=== PATIENT | male | born 1955 | race Caucasian/White ===

== ENCOUNTER → 2021-08-11 | Outpatient (CLI) | payer MEDICARE, SELFPAY ==
--- NOTE | 2021-08-11 06:51 | ECHOD_ITS ---
Reason For Study: SOB, Hx of CAD with Stent Procedure This was a 2D Doppler, Color Flow transthoracic echocardiogram. The study was technically difficult. Exam performed in department. Left Ventricle Normal LV size. Left ventricular systolic function is normal. The estimated ejection fraction is 60 %. No evidence for diastolic dysfunction. No regional wall motion abnormalities noted. Right Ventricle Normal RV size. Normal systolic function. Atria The left atrium is mildly enlarged. Normal right atrium. No doppler evidence for ASD. Mitral Valve There is mild mitral annular calcification. Extension of the mitral annular calcification onto the base of the posterior mitral valve leaflet. Trivial mitral valve insufficiency. Tricuspid Valve Normal tricuspid valve. Trivial tricuspid valve insufficiency. Right ventricular systolic pressure estimated to be 24 mmHg. Aortic Valve Trisinus/trileaflet aortic valve. Mild diffuse aortic valve thickening. Mild focal aortic valve calcification. Pulmonic Valve The pulmonic valve is not well visualized. Mild (1+) pulmonic valve insufficiency. Great Vessels Normal sized aortic root. Pericardium/Pleural No pericardial effusion. MMode/2D Measurements & Calculations LVIDd: 4.3 cm IVSd: 0.96 cm Ao root diam: 3.1 cm LVIDs: 2.6 cm LVPWd: 0.87 cm RVDd: 3.1 cm FS: 38.4 % LAV(MOD-bp): 54.7 ml LVAd ap4: 23.7 cm2 SV(MOD-sp4): 38.7 ml LAV(MOD-bp) Indexed: 25.0 ml/m2 LVLd ap4: 6.9 cm LAV(MOD-sp2): 59.3 ml EDV(MOD-sp4): 67.5 ml LAV(MOD-sp4): 52.4 ml EDV(sp4-el): 68.7 ml LVAs ap4: 14.2 cm2 LVLs ap4: 6.2 cm ESV(MOD-sp4): 28.8 ml ESV(sp4-el): 27.7 ml EF(MOD-sp4): 57.4 % EF(sp4-el): 59.8 % SV(sp4-el): 41.1 ml LA A4 area: 18.8 cm2 LA dimension(2D): 4.6 cm RA A4 area: 13.6 cm2 Doppler Measurements & Calculations MV E max yung: 72.1 cm/sec Lat Peak E' Yung: 7.8 cm/sec Med Peak E' Yung: 7.4 cm/sec MV A max yung: 95.1 cm/sec E/E' lat: 9.2 E/E' med: 9.7 MV E/A: 0.76 Ao V2 max: 140.7 cm/sec LV V1 max: 105.3 cm/sec PA V2 max: 91.3 cm/sec Ao max P.9 mmHg LV V1 max P.4 mmHg Ao V2 mean: 90.1 cm/sec Ao mean P.7 mmHg Ao V2 VTI: 28.8 cm TR max yung: 231.5 cm/sec TR max P.4 mmHg ECHO/Echo Complete Interpretation Summary The study was technically difficult. Left ventricular systolic function is normal. The estimated ejection fraction is 60 %. The left atrium is mildly enlarged. There is mild mitral annular calcification. Extension of the mitral annular calcification onto the base of the posterior mi tral valve leaflet. Trivial mitral valve insufficiency. Trivial tricuspid valve insufficiency. Mild diffuse aortic valve thickening. Mild focal aortic valve calcification. Mild (1+) pulmonic valve insufficiency. Right ventricular systolic pressure estimated to be 24 mmHg. No evidence for diastolic dysfunction. Ordering Physician: Anamaria Fuentes Referring Physician: Clarence Reyes Performed By: Mariel Hobbs RDCS, RVT
--- NOTE | 2021-08-11 07:00 | VDLE_ITS ---
Reason For Study: edema RIGHT LEFT GSV is normal. GSV is normal. CFV is compressible, spontaneous, phasic, CFV is compressible, spontaneous, phasic, competent and demonstrates normal competent, and demonstrates normal augmentation. augmentation. FV is compressible, spontaneous, phasic, FV is compressible, spontaneous, phasic, competent and demonstrates normal competent and demonstrates normal augmentation. augmentation. POP V is compressible, spontaneous, phasic, POP V is compressible, spontaneous, phasic, competent and demonstrates normal competent and demonstrates normal augmentation. augmentation. T/P Trunk is compressible. T/P Trunk is compressible. PTV is compressible. PTV is compressible. RT PerV is compressible. LT PerV is compressible. Procedure This is a venous duplex using B-mode, color flow and spectral Doppler. Exam performed in department. The exam was diagnostic. A preliminary report was called and/or faxed to Anamaria Fuentes. VL/Venous Duplex US - Kiko Extrem Interpretation Summary Bilateral lower extremities with no evidence of DVT noted. Ordering Physician: Anamaria Fuentes Performed By: Theodore Bell RVT
--- NOTE | 2021-08-11 07:02 | EKG12_ITS ---
Test Reason : CAD Blood Pressure : / mmHG Vent. Rate : 074 BPM Atrial Rate : 074 BPM P-R Int : 180 ms QRS Dur : 076 ms QT Int : 372 ms P-R-T Axes : 051 -06 013 degrees QTc Int : 412 ms Normal sinus rhythm Normal ECG Confirmed by NAN MEI, ABDULAZIZ ([id number]), purchase request editor ADRIANA GARCIA ([id number]) on 08/12/2021 10:14:02 AM Referred By: Anamaria Fuentes Confirmed By:ABDULAZIZ MONTANA MD
== END | disposition home or self-care (01) ==
PROVIDERS: PCP Family Medicine; Referring Provider Nurse Practitioner Primary Care; Visit Provider Nurse Practitioner Primary Care
DX: R60.0 Localized edema (principal); I25.10 Atherosclerotic heart disease of native coronary artery without angina pectoris; M79.604 Pain in right leg; M79.605 Pain in left leg
CPT/HCPCS: 93005; 93306; 93970

== ENCOUNTER 2021-12-22 20:17 | Observation (INO) | payer MEDICARE, SELFPAY ==
[2021-12-22 18:08] VITALS: BP 142/98; PULSE 87; RESP 18; TEMP 36.9; O2SAT 96; BMI 34.2
[2021-12-22 18:24] VITALS: PULSE 89
--- NOTE | 2021-12-22 19:07 | CON.PCM.CA_ITS ---
Assessment & Plan Assessment/Plan (1) Abnormal cardiac enzyme level: PLAN: He does have evidence of mildly abnormal cardiac enzyme level. The etiology of the above is likely secondary to demand ischemia. At this time my recommendation would be to repeat cardiac enzyme level and keep him on aspirin as well as his beta-mike and statin. Further recommendations will be made depending on further testing. (2) Presence of stent in coronary artery: PLAN: He does have a history of coronary artery disease status post angioplasty and stenting of the distal right coronary artery. He has not had any angina and he would remain on his current medical therapy. (3) Essential hypertension: PLAN: He does have a history of hypertension which appears to be well controlled at this particular time. We will not make any medication changes. He is on the beta-mike, amlodipine, and diuretic. (4) Mixed hyperlipidemia: PLAN: He does have a history of hyperlipidemia and he will continue with his medium intensity statin. Thank you for allowing me to participate in the care of your patient. Please don't hesitate to call if any issues arise. HPI Consult Data Date of Consult: 12/22/21 HPI Narrative HPI Narrative: HAKEEM FREIRE, is a 66 M who presents to the hospital of the [facility] transferred from [facility]. 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 He got out of the dozer and while running away got short of breath. He presented to the emergency room for treatment of his bee sting and when he complained of shortness of breath they checked a troponin which was noted to be abnormal and he was started on a heparin drip and sent to [facility] the [facility]. He denies any chest pain no paroxysmal nocturnal dyspnea or pedal edema he has had no neck arm or jaw discomfort to suggest angina. He does have a history of coronary artery disease status postcardiac catheterization in 2010 which demonstrated an occluded distal LAD for which medical therapy was recommended. In 2015 he underwent another cardiac catheterization for which he underwent stenting to the right coronary artery. He was scheduled to establish care with Dr. Erasto Adrian MD of the [facility] on 12/23/2021. At this part icular time he appears to be stable with no issues. Cardiology was called to see him because of the abnormal troponin. [facility] Medical History Atherosclerotic heart disease of [place] coronary artery without angina pectoris Bilateral carotid artery disease Elevated hemidiaphragm Essential hypertension History of left heart catheterization (LHC) (~07/2010) History of non-ST elevation myocardial infarction (NSTEMI) (~08/02/10) Mixed hyperlipidemia Presence of stent in coronary artery (~07/23/15) Home Medications albuterol sulfate 90 mcg/actuation aerosol inhaler (ProAir HFA) 2 puff inhalation Q4H PRN 12/16/21 [History Last Taken Unknown] amlodipine 10 mg tablet 10 mg PO DAILY BP 12/16/21 [History Last Taken 12/22/21] metoprolol succinate 50 mg tablet,extended release 24 hr 50 mg PO DAILY cholesterol 12/16/21 [History Last Taken 12/22/21] pravastatin 40 mg tablet 40 mg PO DAILY cholesterol 12/16/21 [History Last Taken 12/22/21] furosemide 40 mg tablet 40 mg PO BID fluid 12/22/21 [History Last Taken 12/21/21] Allergy/AdvReac Type Severity Reaction Status Date / Time No Known Allergies Allergy Unverified 12/16/21 12:00 Family History Father CVA (cerebral vascular accident) Sister Heart failure Surgical History History of back surgery History of lung surgery Presence of coronary angioplasty implant and graft (~07/23/15) Social History Smoking Status: Former smoker alcohol intake: current details: occasional substance use type: does not use caffeine: Yes (5 servings per day) ROS Constitutional Constitutional: Denies fever(s) or weight loss Eyes Eyes: Reports systems reviewed and no addt'l complaints, except as documented ENT HEENT: Reports systems reviewed and no addt'l complaints, except as documented Cardiovascular Cardiovascular: Reports dyspnea on exertion; Denies chest pain at rest, chest pain with activity, dyspnea at rest, edema, palpitations or paroxysmal nocturnal dyspnea Respiratory/Chest Respiratory/Chest: Reports shortness of breath with exertion; Denies dyspnea on exertion, productive cough or shortness of breath at rest Gastrointestinal Gastrointestinal: Denies change in bowel habits, nausea, vomiting or weight changes Genitourinary Genitourinary: Denies difficulty urinating Musculoskeletal Musculoskeletal: Denies joint stiffness or muscle weakness Integumentary Integumentary: Denies lesions Neurologic Neurologic: Denies dizziness or syncope Psychiatric Psychiatric: Denies anxiety Endocrine Endocrinology: Denies excessive sweating or fatigue Hematologic/Lymphatic Hematologic/Lymphatic: Denies anemia Allergic/Immunologic Allergic/Immunologic: Denies seasonal rhinorrhea Physical Exam Const alert, oriented x3 and no apparent distress General Appearance: cooperative HEENT hearing grossly normal bilaterally Head and Scalp: atraumatic Eyes EOMs intact bilaterally Neck General: normal visual inspection Chest inspection of chest normal and palpation of chest normal Resp normal respiratory effort Auscultation: clear to auscultation bilaterally Cardio regular rate, regular rhythm, S1 normal heart sound and S2 normal heart sound Jugular Venous Distention: JVD GI normal to inspection, nondistended, normoactive bowel sounds Extremity normal capillary refill and no pedal edema Peripheral Pulses: Yes pulses 2+ throughout and femoral pulses present Skin no rashes or lesions noted Neuro oriented x3 and CN's II-XII intact bilaterally Psych Appearance: grossly normal and appropriate Risk Stratification Risk Stratification Applicable: No Objective Data Vital Signs: Vital Signs Temp Pulse Resp BP Pulse Ox O2 Del Method O2 Flow Rate 98.4 F 89 18 142/98 H 96 Nasal Cannula 3 12/22/21 18:08 12/22/21 18:24 12/22/21 18:08 12/22/21 18:08 12/22/21 18:08 12/22/21 18:39 12/22/21 18:39 Oxygen Flow Rate (L/min) 3 Oxygen Delivery Method Nasal Cannula Weight: 238 lb 9 oz Body Mass Index (BMI) 34.2 Cardiology Labs/Tests Rhythm: EKG: ECHO: Stress Test: Cardiac Cath: PCI: CT Surgery: Holter monitor: EPS: PPM: CXR: Chest CT Scan:
--- NOTE | 2021-12-22 19:19 | ECHOD_ITS ---
Reason For Study: CAD Procedure This was a 2D Doppler, Color Flow transthoracic echocardiogram. Exam performed portable in patient room. Left Ventricle Normal LV size. Left ventricular systolic function is normal. The estimated ejection fraction is 60 %. Stage 1 diastolic dysfunction. No regional wall motion abnormalities noted. Right Ventricle Normal RV size. Normal systolic function. Atria Normal left atrium. Normal right atrium. Mitral Valve Normal mitral valve. Tricuspid Valve Normal tricuspid valve. Aortic Valve Trisinus/trileaflet aortic valve. Mild focal aortic valve calcification. Pulmonic Valve Normal pulmonic valve. Great Vessels Normal aortic root. The pulmonary artery is normal size. Normal inferior vena cava. Pericardium/Pleural No pericardial effusion. MMode/2D Measurements & Calculations LVIDd: 3.9 cm IVSd: 1.5 cm LVOT diam: 2.1 cm LVIDs: 2.4 cm LVPWd: 1.1 cm LVOT area: 3.4 cm2 FS: 38.1 % Ao root diam: 3.2 cm LAV(MOD-bp): 54.3 ml LA A4 area: 20.8 cm2 LAV(MOD-bp) Indexed: 24.1 ml/m2 LAV(MOD-sp2): 44.6 ml LAV(MOD-sp4): 63.9 ml LA dimension(2D): 4.2 cm RA A4 area: 15.0 cm2 Time Measurements MV dec time: 0.24 sec Doppler Measurements & Calculations MV E max yung: 69.5 cm/sec Lat Peak E' Yung: 9.2 cm/sec Med Peak E' Yung: 7.1 cm/sec MV A max yung: 92.7 cm/sec E/E' lat: 7.5 E/E' med: 9.8 MV E/A: 0.75 MV dec slope: 287.4 cm/sec2 Ao V2 max: 142.1 cm/sec LV V1 max: 92.0 cm/sec Ao max P.1 mmHg LV V1 max P.4 mmHg Ao V2 mean: 95.8 cm/sec LV V1 mean P.6 mmHg Ao mean P.1 mmHg LV V1 mean: 60.5 cm/sec Ao V2 VTI: 27.0 cm LV V1 VTI: 19.1 cm ALLYSON(I,D): 2.4 cm2 ALLYSON(V,D): 2.2 cm2 SV(LVOT): 64.5 ml PA V2 max: 99.1 cm/sec ECHO/Echo Complete Interpretation Summary Normal LV size. Left ventricular systolic function is normal. The estimated ejection fraction is 60 %. Mild focal aortic valve calcification. Stage 1 diastolic dysfunction. Ordering Physician: Maximo Mae Referring Physician: Clarence Reyes Performed By: Jo Zavala RDCS
[2021-12-22 19:39] LABS: Troponin-I HS 218 pg/mL (3.0-78.0)
[2021-12-22 19:43] VITALS: PULSE 89
[2021-12-22] MEDS: Acetaminophen 325 MG Tablet 650 MG PO (20:31)
--- NOTE | 2021-12-22 20:33 | HP.PCM.HOS_ITS ---
HPI - General General Date of Admission: 12/22/21 Date of Service: 12/22/21 Chief Complaint: Elevated troponin HPI Narrative HAKEEM FREIRE, is a 66 M who was directly admitted to PCU at [facility] as a transfer from [facility] due to elevated troponin. 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 He received many stings from the yellow jackets. The work-up in the emergency room revealed an elevated troponin, patient's EKG was unremarkable, patient's chest x-ray showed a chronically elevated left hemidiaphragm. Patient's cardiac enzymes were as high as 291 troponin-normal for that facility is 70. Patient has a past history of coronary disease with stent placement in July 2015 according to the patient's medical records here. Patient has no complaints of any chest pain at the time my examination today and he does not complain of any shortness of breath, he has some discomfort from the yellowjacket stings on the back of his head but overall he has no other complaints. Patient was seen by cardiology today and will undergo a cardiac catheterization tomorrow morning. Echocardiogram will be ordered and the patient will have serial cardiac enzymes drawn here. Patient was due to see Dr. Adrian in the office this month as a new patient. [facility] Medical History Atherosclerotic heart disease of [place] coronary artery without angina pectoris Bilateral carotid artery disease Elevated hemidiaphragm Essential hypertension History of left heart catheterization (LHC) (~07/2010) History of non-ST elevation myocardial infarction (NSTEMI) (~08/02/10) Mixed hyperlipidemia Presence of stent in coronary artery (~07/23/15) Home Medications albuterol sulfate 90 mcg/actuation aerosol inhaler (ProAir HFA) 2 puff inhalation Q4H PRN 12/16/21 [History Last Taken Unknown] amlodipine 10 mg tablet 10 mg PO DAILY BP 12/16/21 [History Last Taken 12/22/21] metoprolol succinate 50 mg tablet,extended release 24 hr 50 mg PO DAILY cholesterol 12/16/21 [History Last Taken 12/22/21] pravastatin 40 mg tablet 40 mg PO DAILY cholesterol 12/16/21 [History Last Taken 12/22/21] furosemide 40 mg tablet 40 mg PO BID fluid 12/22/21 [History Last Taken 12/21/21] Allergy/AdvReac Type Severity Reaction Status Date / Time No Known Allergies Allergy Unverified 12/16/21 12:00 Family History Father CVA (cerebral vascular accident) Sister Heart failure Surgical History History of back surgery History of lung surgery Presence of coronary angioplasty implant and graft (~07/23/15) Social History Smoking Status: Former smoker alcohol intake: current details: occasional substance use type: does not use caffeine: Yes (5 servings per day) ROS Constitutional Constitutional: Denies anorexia, change in weight, fatigue, fever(s), malaise, night sweats or weakness Eyes Eyes: Denies blurry vision, change in vision, discharge from eye(s) or eye pain Cardiovascular Cardiovascular: Reports dyspnea on exertion; Denies chest pain, claudication, edema or palpitations Respiratory/Chest Respiratory/Chest: Reports shortness of breath with exertion; Denies cough, dyspnea, hemoptysis, productive cough or shortness of breath at rest Gastrointestinal Gastrointestinal: Denies abdominal pain, constipation, diarrhea, hematemesis, hematochezia, melena, nausea or vomiting Genitourinary Genitourinary: Denies dysuria, hematuria, urinary frequency, urinary hesitancy, urinary incontinence or urinary urgency Musculoskeletal Musculoskeletal: Denies back pain, joint pain, joint stiffness, joint swelling, myalgias or neck pain Neurologic Neurologic: Denies abnormal gait, abnormal speech, dizziness, focal weakness, headache(s), loss of vision, numbness, other visual disturbances, paresthesias, syncope or tingling Psychiatric Psychiatric: Denies anxiety, cognitive impairment, depression, irritability, mood swings or suicidal ideation Endocrine Endocrinology: Denies change in body appearance, cold intolerance, excessive sweating, heat intolerance, polydipsia or polyuria Hematologic/Lymphatic Hematologic/Lymphatic: Denies none, anemia, easy bleeding, easy bruising or lymphadenopathy Allergic/Immunologic Allergic/Immunologic: Denies rhinitis, urticaria, eczemia or asthma Vital Signs Vital Signs Vital Signs: 12/22/21 18:08 12/22/21 18:24 12/22/21 18:39 Temperature 98.4 F Temperature Source Oral Pulse Rate 87 89 Respiratory Rate 18 Respiratory Effort Non-Labored Respiratory Depth Normal Respiratory Pattern Normal Blood Pressure 142/98 H Blood Pressure Mean 112 Blood Pressure Source Monitor Blood Pressure Position Semi-Fowlers Blood Pressure Location Left Arm Pulse Ox 96 Oxygen Delivery Method Nasal Cannula Nasal Cannula Oxygen Flow Rate (L/min) 3 3 12/22/21 19:43 Temperature Temperature Source Pulse Rate 89 Respiratory Rate Respiratory Effort Respiratory Depth Respiratory Pattern Blood Pressure Blood Pressure Mean Blood Pressure Source Blood Pressure Position Blood Pressure Location Pulse Ox Oxygen Delivery Method Oxygen Flow Rate (L/min) Weight Weight: 108.21 kg Body Mass Index (BMI) 34.2 Physical Exam Const alert, oriented x3, no apparent distress and healthy appearing General Appearance: cooperative, well kempt and well developed Orientation / Consciousness: awake, oriented to person, oriented to place and oriented to time HEENT normocephalic, hearing grossly normal bilaterally and moist oral mucous membranes Eyes PERRL, EOMs intact bilaterally and conjunctivae normal Neck supple, no JVD, thyroid normal and no carotid bruits General: trachea midline Resp normal respiratory effort, no retractions, no use of accessory muscles and clear to auscultation bilaterally Auscultation: Negative for rales, rhonchi or wheezes Cardio regular rate, regular rhythm, S1 normal heart sound, S2 normal heart sound, no murmurs, no rub and no gallops GI normal to inspection, nondistended, normoactive bowel sounds, soft to palpation, non-tender and non-distended Extremity no clubbing, cyanosis or edema Skin no rashes or lesions noted General Skin Exam: no breakdown Neuro oriented x3, CN's II-XII intact bilaterally, moves all extremities, no focal motor deficits and no sensory deficits noted Sensorium / Orientation: awake, alert, oriented to person, oriented to place and oriented to time Speech: speech normal Psych affect normal Results Lab / Micro Data Labs: Laboratory Results - last 24 hr 12/22/21 19:00: Troponin I High Sens 218 H* Assessment & Plan Assessment/Plan (1) Abnormal cardiac enzyme level: PLAN: Plan 1. Bxi-PAANH-ojioh patient was placed into observation status on PCU, cardiac enzymes will be cycled, patient will have an echocardiogram performed, he will undergo a cardiac catheterization tomorrow. #2 coronary artery disease-again patient was seen by cardiology and will have further testing done during this admission #3 hyperlipidemia-patient will be maintained on a statin #4 essential hypertension-patient will remain on his home medication #5 chronic dyspnea-patient states that this is secondary to an abnormally elevated left hemidiaphragm and deconditioning. Charges/Coding Visit Charges OBSV E&M: 83295 Initial observation care L3
--- NOTE | 2021-12-22 20:42 | EKG12_ITS ---
Test Reason : am ekg Blood Pressure : / mmHG Vent. Rate : 089 BPM Atrial Rate : 089 BPM P-R Int : 170 ms QRS Dur : 086 ms QT Int : 372 ms P-R-T Axes : 076 -07 040 degrees QTc Int : 452 ms Normal sinus rhythm Inferior infarct , age undetermined Abnormal ECG When compared with ECG of 22-DEC-2021 20:51, MANUAL COMPARISON REQUIRED, DATA IS UNCONFIRMED Confirmed by ADEOLA MEI, MALACHI ([id number]), continuity editor ADRIANA GARCIA ([id number]) on 12/27/2021 10:13:30 AM Referred By: Soni Confirmed By:MALACHI MIR MD
--- NOTE | 2021-12-22 20:51 | EKG12_ITS ---
Test Reason : admission ekg Blood Pressure : / mmHG Vent. Rate : 091 BPM Atrial Rate : 091 BPM P-R Int : 178 ms QRS Dur : 088 ms QT Int : 360 ms P-R-T Axes : 075 -10 036 degrees QTc Int : 442 ms Normal sinus rhythm Normal ECG When compared with ECG of 11-AUG-2021 07:33, No significant change was found Confirmed by ADEOLA MEI, MALACHI ([id number]), electronic news gathering editor ADRIANA GARCIA ([id number]) on 12/27/2021 10:15:31 AM Referred By: Soni Confirmed By:MALACHI MIR MD
[2021-12-22] MEDS: Furosemide 40 MG Tablet PO (21:02)
[2021-12-22] MEDS: Atorvastatin Calcium 40 MG Tablet PO (21:04)
[2021-12-22 22:55] LABS: Troponin-I HS 160 pg/mL (3.0-78.0)
[2021-12-22 23:37] LABS: Troponin-I HS 142 pg/mL (3.0-78.0)
[2021-12-22 23:47] VITALS: BP 117/61; PULSE 87; RESP 18; TEMP 36.7; O2SAT 96
[2021-12-23] VITALS (15 sets, daily range): BP systolic 105–133; BP diastolic 48–88; PULSE 71–92; RESP 14–18; TEMP 36.3–36.7; O2SAT 91–97
[2021-12-23] MEDS: Potassium Chloride Oral Tablet 20 MEQ 40 MEQ PO (05:38)
--- NOTE | 2021-12-23 05:55 | EKG12_ITS ---
Test Reason : am ekg Blood Pressure : / mmHG Vent. Rate : 090 BPM Atrial Rate : 090 BPM P-R Int : 174 ms QRS Dur : 086 ms QT Int : 364 ms P-R-T Axes : 076 -08 037 degrees QTc Int : 445 ms Normal sinus rhythm Inferior infarct , age undetermined Abnormal ECG When compared with ECG of 23-DEC-2021 04:53, MANUAL COMPARISON REQUIRED, DATA IS UNCONFIRMED Confirmed by ADEOLA MEI, MALACHI ([id number]), make up editor SHARONDA VASQUEZ ([id number]) on 12/25/2021 9:36:18 AM Referred By: Soni Confirmed By:MALACHI MIR MD
[2021-12-23 07:18] LABS: Cholesterol 130 mg/dL (200); High Density Lipoprotein 26 mg/dL; Triglycerides 58 mg/dL; Very Low Density Lipoprotein 12 mg/dL (5-40)
--- NOTE | 2021-12-23 07:56 | PN.HOSP_ITS ---
Subjective Subjective Feels well. Has some itching on scalp and extremities from being stung. Objective Data Objective Data Vital Signs: Vital Signs Temp Pulse Resp BP Pulse Ox O2 Del Method O2 Flow Rate 36.5 C L 73 18 110/69 96 Nasal Cannula 3 12/23/21 07:49 12/23/21 07:49 12/23/21 07:49 12/23/21 07:49 12/23/21 07:49 12/23/21 07:49 12/23/21 07:49 Oxygen Flow Rate (L/min) 3 Oxygen Delivery Method Nasal Cannula Weight: 108.21 kg Body Mass Index (BMI) 34.2 Lab / Micro Data Labs: Laboratory Results - last 24 hr 12/22/21 19:00: Troponin I High Sens 218 H* 12/22/21 21:45: Troponin I High Sens 160 H* 12/22/21 23:00: Troponin I High Sens 142 H* 12/23/21 05:45: Triglycerides 58, Cholesterol 130, LDL Cholesterol 92, VLDL Cholesterol 12, HDL Cholesterol 26 L Physical Exam Const alert Resp normal respiratory effort, no retractions, no use of accessory muscles and clear to auscultation bilaterally Cardio regular rate, regular rhythm, S1 normal heart sound and S2 normal heart sound GI normal to inspection, nondistended, normoactive bowel sounds, soft to palpation, non-tender and non-distended Psych affect normal Assessment & Plan Assessment/Plan (1) NSTEMI, initial episode of care: PLAN: Non-STEMI type II. Cardiac catheterization today showed non-obstructive CAD on metoprolol succinate 50/d Due to patient running (which is something patient does not do) plus getting stung roughly 30 times by yellow jackets. No additional work-up (2) Insect stings: QUALIFIERS: Encounter type: initial encounter Injury intent: accidental or unintentional Qualified Code(s): T63.481A - Toxic effect of venom of other arthropod, accidental (unintentional), initial encounter PLAN: Patient has some mild pruritus. Patient advised that he can take diphenhydramine as needed and famotidine. No concern for anaphylaxis at this time. PLAN: Plan Chronic conditions: * coronary artery disease-a * hyperlipidemia-patient will be maintained on a statin * essential hypertension-patient will remain on his home medication * chronic dyspnea-patient states that this is secondary to an abnormally elevated left hemidiaphragm and deconditioning. Discharge home
[2021-12-23] MEDS: amLODIPine 10 MG Tablet PO (08:21)
[2021-12-23] MEDS: Furosemide 40 MG Tablet PO (08:21)
[2021-12-23] MEDS: Acetaminophen 325 MG Tablet 650 MG PO (08:23)
[2021-12-23] MEDS: Metoprolol(XL)Succ 50 MG Tablet PO (08:23)
--- NOTE | 2021-12-23 09:07 | CASEMGMT ---
According to the [facility] website, the following are in-network tertiary facilities: [facility], [place], [facility], [facility], [facility], [facility], and . Mariaa [facility] CM
--- NOTE | 2021-12-23 09:39 | PCM.PN.CARD ---
Subjective Subjective Patient seen and evaluated. Objective Data Vital Signs: Vital Signs Temp Pulse Resp BP Pulse Ox O2 Del Method O2 Flow Rate 97.3 F L 81 16 128/76 H 96 Nasal Cannula 3 12/23/21 08:15 12/23/21 08:23 12/23/21 08:15 12/23/21 08:23 12/23/21 08:15 12/23/21 08:45 12/23/21 08:45 Oxygen Flow Rate (L/min) 3 Oxygen Delivery Method Nasal Cannula Weight: 238 lb 9 oz Body Mass Index (BMI) 34.2 Lab / Micro Data Labs: Laboratory Results - last 24 hr 12/22/21 19:00: Troponin I High Sens 218 H* 12/22/21 21:45: Troponin I High Sens 160 H* 12/22/21 23:00: Troponin I High Sens 142 H* 12/23/21 05:45: Triglycerides 58, Cholesterol 130, LDL Cholesterol 92, VLDL Cholesterol 12, HDL Cholesterol 26 L Cardiology Labs/Tests 12/23/21 05:45: Triglycerides 58, Cholesterol 130, LDL Cholesterol 92, VLDL Cholesterol 12, HDL Cholesterol 26 L Rhythm: EKG: ECHO: Stress Test: Cardiac Cath: PCI: CT Surgery: Holter monitor: EPS: PPM: CXR: Chest CT Scan: Physical Exam Const alert, oriented x3 and no apparent distress General Appearance: cooperative HEENT hearing grossly normal bilaterally Head and Scalp: atraumatic Eyes EOMs intact bilaterally Neck General: normal visual inspection Chest inspection of chest normal and palpation of chest normal Resp normal respiratory effort Auscultation: clear to auscultation bilaterally Cardio regular rate, regular rhythm, S1 normal heart sound and S2 normal heart sound Jugular Venous Distention: JVD GI normal to inspection, nondistended, normoactive bowel sounds Extremity normal capillary refill and no pedal edema Peripheral Pulses: Yes pulses 2+ throughout and femoral pulses present Skin no rashes or lesions noted Neuro oriented x3 and CN's II-XII intact bilaterally Psych Appearance: grossly normal and appropriate Assessment & Plan Assessment/Plan (1) NSTEMI, initial episode of care: PLAN: He did present with a mild elevation in cardiac enzymes. Cardiac catheterization today demonstrated nonobstructive coronary disease noted in the LAD and the right coronary artery. His ejection fraction is normal. I would recommend that we continue him on the current medical therapy. He can be discharged for outpatient follow-up. (2) Presence of stent in coronary artery: PLAN: He is status post previous angioplasty and stenting of the right coronary artery. Evaluation demonstrates no significant obstructive coronary disease. The plan will be to continue him on the current medical therapy. He can be followed up as an outpatient. Thank you for allowing me to participate in the care of your patient. Please don't hesitate to call if any issues arise.
--- NOTE | 2021-12-23 10:20 | DCINST_ITS ---
Discharge Instructions Diet Discharge Diet: Low fat / Low cholesterol Dressing / Incision Call your doctor if you observe: Shortness of breath, Chest pain and Increased palpitations (irregular heartbeat) Follow Up Care Test Results: Test results from this visit will be discussed in further detail at your follow- up appointment, if applicable. Discharge Plan Admission Admit Date/Time: 12/22/21 20:17 Primary Reason for Your Visit: chest pain Attending Provider: Montana Medeiros Primary Care Provider: Clarence Reyes Consulting Providers: Maximo Mae ; Dipak Shafer Discharge Orders/Prescriptions Prescriptions: New aspirin 81 mg Tablet,Delayed Release (Dr/Ec) 81 mg PO BREAKFAST Qty: 0 0RF diphenhydramine HCl [Benadryl] 25 mg capsule 25 mg PO TID PRN (Reason: itching) Qty: 20 0RF famotidine [Acid Controller] 20 mg tablet 20 mg PO DAILY Qty: 5 0RF Rx Instructions: daily for 5 days Continued pravastatin 40 mg tablet 40 mg PO DAILY albuterol sulfate [ProAir HFA] 90 mcg/actuation HFA aerosol inhaler 2 puff inhalation Q4H PRN (Reason: Shortness Of Breath) amlodipine 10 mg tablet 10 mg PO DAILY metoprolol succinate 50 mg tablet extended release 24 hr 50 mg PO DAILY furosemide 40 mg tablet 40 mg PO BID Referrals / Follow Up: Clarence Reyes MD [Primary Care Provider] - Within 2 Weeks Disposition Disposition (needs filled in before D/C Order can be placed): Home, Self Care
--- NOTE | 2021-12-23 10:24 | DS.PCM_ITS ---
Providers Date of Admission: 12/22/21 Primary Care Physician: Dr. Clarence Reyes MD Consultations 12/22/21 20:42 Consult: Cardiology Routine Consulting Provider: Maximo Mae Reason for Consult: NSTEMI EMERGENT Consult: No MD Notified: Yes Date Notified: 12/22/21 Time Notified: 20:19 Method of Notification: Verbal Reason For Visit: NSTEMI Diagnosis Discharge Diagnosis (1) NSTEMI, initial episode of care: Status: Acute Code(s): I21.4 - Non-ST elevation (NSTEMI) myocardial infarction Plan: Non-STEMI type II. Cardiac catheterization today showed non-obstructive CAD on metoprolol succinate 50/d Due to patient running (which is something patient does not do) plus getting stung roughly 30 times by yellow jackets. No additional work-up (2) Insect stings: Status: Acute Code(s): T63.481A - Toxic effect of venom of other arthropod, accidental (unintentional), initial encounter Qualifiers: Encounter type: initial encounter Injury intent: accidental or unintentional Qualified Code(s): T63.481A - Toxic effect of venom of other arthropod, accidental (unintentional), initial encounter Plan: Patient has some mild pruritus. Patient advised that he can take diphenhydr amine as needed and famotidine. No concern for anaphylaxis at this time. Plan Chronic conditions: * coronary artery disease-a * hyperlipidemia-patient will be maintained on a statin * essential hypertension-patient will remain on his home medication * chronic dyspnea-patient states that this is secondary to an abnormally elevated left hemidiaphragm and deconditioning. Discharge home Medications at Discharge Home Medications albuterol sulfate 90 mcg/actuation aerosol inhaler (ProAir HFA) 2 puff inhalation Q4H PRN Shortness Of Breath 12/16/21 amlodipine 10 mg tablet 10 mg PO DAILY BP 12/16/21 metoprolol succinate 50 mg tablet,extended release 24 hr 50 mg PO DAILY cholesterol 12/16/21 pravastatin 40 mg tablet 40 mg PO DAILY cholesterol 12/16/21 furosemide 40 mg tablet 40 mg PO BID fluid 12/22/21 aspirin 81 mg tablet,delayed release 81 mg PO BREAKFAST #0 tabs 12/23/21 diphenhydramine HCl 25 mg capsule (Benadryl) 25 mg PO TID PRN itching #20 caps 12/23/21 famotidine 20 mg tablet (Acid Controller) 20 mg PO DAILY #5 tabs 12/23/21 Hospital Course Operations None Procedures Cardiac catheterization Summary of Care Provided Minutes Spent on Discharge: 28 Weight / BMI Weight Weight: 108.21 kg Body Mass Index (BMI) 34.2 ABG / Lab / Microbiology Data Laboratory: Laboratory Results - last 24 hr 12/22/21 19:00: Troponin I High Sens 218 H* 12/22/21 21:45: Troponin I High Sens 160 H* 12/22/21 23:00: Troponin I High Sens 142 H* 12/23/21 05:45: Triglycerides 58, Cholesterol 130, LDL Cholesterol 92, VLDL Cholesterol 12, HDL Cholesterol 26 L D/C Instructions Discharge Diet: Low fat / Low cholesterol Call your doctor if you observe: Shortness of breath, Chest pain and Increased palpitations (irregular heartbeat) Meaningful Use Info Meaningful Use Diagnoses (Choose all that apply): AMI AMI/Post PCI/Angioplasty Aspirin given w/in 24hrs of arrival?: Yes ASA at discharge?: Yes Antiplatelet Therapy at Discharge:: No Statins at discharge?: Yes Jesse/ARB at discharge?: No Reason Jesse/ARB not ordered:: Hypotension Beta Lissett at discharge?: Yes Done w/ Acute OH measure.: Yes Documented LVEF (%): 60 Discharge Plan Admission Admit Date/Time: 12/22/21 20:17 Primary Reason for Your Visit: chest pain Attending Provider: Montana Medeiros Primary Care Provider: Clarence Reyes Consulting Providers: Maximo Mae ; Dipak Shafer Discharge Orders/Prescriptions Prescriptions: New aspirin 81 mg Tablet,Delayed Release (Dr/Ec) 81 mg PO BREAKFAST Qty: 0 0RF diphenhydramine HCl [Benadryl] 25 mg capsule 25 mg PO TID PRN (Reason: itching) Qty: 20 0RF famotidine [Acid Controller] 20 mg tablet 20 mg PO DAILY Qty: 5 0RF Rx Instructions: daily for 5 days Continued pravastatin 40 mg tablet 40 mg PO DAILY albuterol sulfate [ProAir HFA] 90 mcg/actuation HFA aerosol inhaler 2 puff inhalation Q4H PRN (Reason: Shortness Of Breath) amlodipine 10 mg tablet 10 mg PO DAILY metoprolol succinate 50 mg tablet extended release 24 hr 50 mg PO DAILY furosemide 40 mg tablet 40 mg PO BID Referrals / Follow Up: Clarence Reyes MD [Primary Care Provider] - Within 2 Weeks Disposition Disposition (needs filled in before D/C Order can be placed): Home, Self Care Charges/Coding Visit Charges OBSV E&M: 44516 Observation care discharge
[2021-12-23] MEDS: 0.9% Normal Saline 1,000 ML 75 ML IV (10:30)
--- NOTE | 2021-12-23 11:32 | PHA.DC.MC ---
Pharmacy Service has performed discharge medication reconciliation and counseling for this patient. The patient was counseled on the following discharge medications and changes in medications for homegoing were reviewed. 1. BENADRYL 2. FAMOTIDINE 3. ASPIRIN The Reason for Use, instructions for use, and potential side effects were reviewed for all new medications. The patient's questions regarding all of their medications were answered. The patient was able to verbally demonstrate an understanding of their discharge medications. Home Medications albuterol sulfate 90 mcg/actuation aerosol inhaler (ProAir HFA) 2 puff inhalation Q4H PRN Shortness Of Breath 12/16/21 amlodipine 10 mg tablet 10 mg PO DAILY BP 12/16/21 metoprolol succinate 50 mg tablet,extended release 24 hr 50 mg PO DAILY cholesterol 12/16/21 pravastatin 40 mg tablet 40 mg PO DAILY cholesterol 12/16/21 furosemide 40 mg tablet 40 mg PO BID fluid 12/22/21 aspirin 81 mg tablet,delayed release 81 mg PO BREAKFAST #0 tabs 12/23/21 diphenhydramine HCl 25 mg capsule (Benadryl) 25 mg PO TID PRN itching #20 caps 12/23/21 famotidine 20 mg tablet (Acid Controller) 20 mg PO DAILY #5 tabs 12/23/21 The patient's discharge medication list was reviewed for discrepancies and discrepancies were resolved.
[2021-12-23] MEDS: Ondansetron 4 MG/2 ML Vial IV (13:29)
--- NOTE | 2021-12-27 07:57 | CL.D_ITS ---
Patient Name: HAKEEM FREIRE Study Date: 12/23/2021 Performing: Maximo Mae MD Ht: 70 inches 177.8 cm : 1955 Wt: 238.9 lbs 108.21 kg Age: 66 Gender: male BSA: 2.25 PROCEDURE(S) PERFORMED DC01-([id number])LHC/COR/LV CLINICAL PROFILE AND INDICATIONS Indications: Suspected CAD Heart Failure: None Stress/Imaging Stress/Image Study Performed: No CAD Presentations: Symptom unlikely to be ischemic. CONCLUSIONS Non obstructive coronary arteries RECOMMENDATIONS Medical therapy DESCRIPTION OF PROCEDURE The patient arrived to the procedure lab. The risks and benefits of the procedure as well as a full description of our services here and current unavailability of surgical backup were fully explained to the patient and/or their significant other prior to the catheterization. The Timeout was completed, verifying the correct patient and procedure. The patient's procedural site was prepped and draped in the usual fashion. Local anesthetic was given subcutaneously to right radial region with Lidocaine 2%. Using a modified Seldinger technique, arterial access was obtained via the right radial artery, a 6Fr sheath was inserted. Left Coronary Artery selective angiography was performed in multiple views using a 5 Fr. 4.0 Lyman catheter. Right Coronary Artery selective angiography was then performed in multiple views using a 5 Fr. 4.0 Lyman catheter. Left Ventriculography was performed in LALA projection using a 5 Fr. Pigtail catheter. LV to AO pullback pressures were then recorded.The arterial sheath was pulled and a TR Band was applied for hemostasis CORONARY ANGIOGRAPHY DOMINANCE: Right Dominant LEFT HEART ASSESSMENT Normal LV wall motion Normal Left Ventricular systolic function LEFT MAIN: Mild calcification LEFT ANTERIOR DESCENDING ARTERY: Mild luminal irregularities less than 30% CIRCUMFLEX ARTERY: Mild luminal irregularities less than 30% RIGHT CORONARY ARTERY: Previously placed stent is patent COMPLICATIONS No Complications PROCEDURE MEDICATIONS Versed 1 mg IV Fentanyl 50 mcg IV Oxygen: 2 L/min via nasal cannula Baby Aspirin (81mg) 1 Tabs PO @ 12/23/2021 09:22:39 Heparin given IA 12/23/2021 09:24:13 Verapamil 2.5mg, Ntg 100mcgs, 3000 units of Heparin given IA 12/23/2021 09:24:13 SUMMARY OF HEMODYNAMIC DATA Time AIR REST AO 103/68 (77) SA 09:26:32 LV 101/13, 20 09:34:07 LV 109/14, 21 09:34:16 LV 0/22, 0 09:35:24 LV 105/14, 24 09:35:32 LVp 104/13, 22 09:35:33 AOp 105/16 (56) 09:35:40 Signed By Maximo Mae MD On 12/23/2021 15:48:22 Signed By Maximo Mae MD On 12/23/2021 15:47:53 Maximo Mae MD
== END 2021-12-23 10:23 | disposition home or self-care (01) ==
PROVIDERS: Admitting Provider Internal Medicine; PCP Family Medicine
DX: I21.4 Non-ST elevation (NSTEMI) myocardial infarction (principal); T63.441A Toxic effect of venom of bees, accidental (unintentional), initial encounter; I25.10 Atherosclerotic heart disease of native coronary artery without angina pectoris; Z87.891 Personal history of nicotine dependence; E78.2 Mixed hyperlipidemia; Z95.5 Presence of coronary angioplasty implant and graft; I25.2 Old myocardial infarction; Y93.89 Activity, other specified; Y99.0 Civilian activity done for income or pay; Y92.89 Other specified places as the place of occurrence of the external cause
CPT/HCPCS: 36415; 80061; 84484; 93005; 93306; 93458; 96361; 96374; 99152; 99218; J7030; Q9967; C1769; C1894; G0378; J2405

== ENCOUNTER → 2023-03-09 | Outpatient (CLI) | payer MEDICARE, SELFPAY | END | disposition home or self-care (01) | LOC: PSN 10:20 | PROVIDERS: Referring Provider Physician Assistant Medical; Visit Provider Physician Assistant Medical | DX: I49.5 Sick sinus syndrome (principal) | CPT/HCPCS: 93225; 93226 ==

== ENCOUNTER 2023-04-01 12:31 | Emergency (ER) | payer MEDICARE, SELFPAY ==
[2023-04-01 12:32] VITALS: BP 137/85; PULSE 88; RESP 18; TEMP 36.4; O2SAT 92
--- NOTE | 2023-04-01 12:52 | CT_ITS ---
STUDY: CT BRAIN WITHOUT CONTRAST REASON FOR EXAM: Male, 68 years old. headache RADIATION DOSAGE (If Supplied By Facility): CTDIvol = ( 44.99 ) mGy, DLP = ( 846.73 ) mGycm TECHNIQUE: Transaxial CT imaging of the brain was performed without administration of intravenous contrast material. Individualized dose optimization techniques were used for this CT. COMPARISON: No relevant priors. FINDINGS: Normal soft tissue structures. Normal calvarium. Normal size ventricles and extra-axial spaces for the patient''s age. Normal white matter tracts of the cerebral hemispheres. Normal basal ganglia and thalami. Normal brainstem. Normal cerebellum. There is no intracranial hemorrhage. There are no findings of an acute ischemic infarction. Normal visualized paranasal sinuses. CT/Brain/Head without Contrast IMPRESSION: Normal unenhanced CT scan of the brain. Electronically Signed: Washington Vidales MD at 14:24 EST ,
--- NOTE | 2023-04-01 12:53 | EKG12_ITS ---
Test Reason : SOB Blood Pressure : / mmHG Vent. Rate : 085 BPM Atrial Rate : 085 BPM P-R Int : 200 ms QRS Dur : 072 ms QT Int : 354 ms P-R-T Axes : 062 -08 018 degrees QTc Int : 421 ms Normal sinus rhythm Inferior infarct (cited on or before 23-DEC-2021) Abnormal ECG Confirmed by ADEOLA MEI, MALACHI ([id number]), assignment desk editor SHARONDA VASQUEZ ([id number]) on 04/11/2023 8:51:33 AM Referred By: Confirmed By:MALACHI MIR MD
--- NOTE | 2023-04-01 12:56 | EX.ED.DYSGE1 ---
HPI <VALE Hickman - Last Filed: 04/01/23 15:15> History of Present Illness Chief Complaint: Dizziness Narrative Narrative: 68-year-old male was working in his garage and standing for prolonged period and his back started to ache. He went inside to take Advil and on the way in developed an occipital headache and squiggly lines in his vision. When he came back out he felt dizzy like he might pass out and had to lean over his work table. He also felt mildly short of breath. Symptoms resolved within a couple minutes. Denies chest pain, palpitations, or syncope. He states he gets a similar headache about once a month for a long time and has never really been evaluated. He figured they were migraines. States now it is just a dull ache in the occipital region. 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 He follows with outpatient psychiatrist. He states his oxygen is around 90-92 at baseline but he does not wear O2. [facility] <VALE Hickman - Last Filed: 04/01/23 15:15> [facility] Medical History Atherosclerotic heart disease of [place] coronary artery without angina pectoris Bilateral carotid artery disease Elevated hemidiaphragm Essential hypertension History of left heart catheterization (LHC) (~07/2010) History of non-ST elevation myocardial infarction (NSTEMI) (~08/02/10) Mixed hyperlipidemia Presence of stent in coronary artery (~07/23/15) Sick sinus syndrome Home Medications famotidine 20 mg tablet (Acid Controller) 20 mg PO DAILY #5 tabs 12/23/21 [Rx Last Taken 03/31/23] ibuprofen 200 mg tablet (Advil) 600 mg PO TID PRN GENERAL PAIN 12/02/22 [History Last Taken Unknown] irbesartan 300 mg tablet 300 mg PO DAILY 12/02/22 [History Last Taken 04/01/23] Allergy/AdvReac Type Severity Reaction Status Date / Time No Known Allergies Allergy Verified 04/01/23 12:38 Family History Father CVA (cerebral vascular accident) Sister Heart failure Other Atherosclerotic heart disease of [place] coronary artery without angina pectoris Surgical History History of back surgery History of lung surgery Presence of coronary angioplasty implant and graft (~07/23/15) Social History Smoking Status: Former smoker alcohol intake: current details: occasional substance use type: does not use caffeine: Yes (5 servings per day) ROS <VALE Hickman - Last Filed: 04/01/23 15:15> ROS ED ROS Narrative Constitutional: Negative for fever, chills, malaise. CVS: Negative for palpitations, chest pain, syncope. Respiratory: Negative for cough. GI: Negative for abdominal pain, nausea, vomiting, melena, hematochezia. Neuro: Positive for headache, negative for motor/sensory dysfunction. EXAM <VALE Hickman - Last Filed: 04/01/23 15:15> Physical Exam Narrative Exam Narrative: CONST: Patient sitting in no acute distress. EYES: Normal inspection. PERRL, EOMI. ENT: Normal inspection, moist mucous membranes. NECK: Normal inspection. No meningismus. RESP: No respiratory distress, CTAB. CVS: Regular rate and rhythm, no murmur, no gallop. ABD: Soft and nontender, no guarding or rebound. SKIN: Color normal, no rash, warm, dry, intact. EXTREMITIES: Normal appearance, no pedal edema. NEURO: Oriented x4. PSYCH: Normal affect. Const Vital Signs: 04/01/23 12:32 04/01/23 12:38 04/01/23 14:31 Temperature 97.6 F L 97 F L Temperature Source Oral Temporal Pulse Rate 88 88 Respiratory Rate 18 16 Respiratory Effort Normal Non-Labored Respiratory Pattern Normal Blood Pressure 137/85 H 121/81 H Blood Pressure Mean 102 94 Pulse Ox 92 94 Oxygen Delivery Method Room Air <Dr. Migel Clifford MD - Last Filed: 04/01/23 14:31> Physical Exam Const Vital Signs: 04/01/23 12:32 04/01/23 12:38 04/01/23 14:31 Temperature 97.6 F L 97 F L Temperature Source Oral Temporal Pulse Rate 88 88 Respiratory Rate 18 16 Respiratory Effort Normal Non-Labored Respiratory Pattern Normal Blood Pressure 137/85 H 121/81 H Blood Pressure Mean 102 94 Pulse Ox 92 94 Oxygen Delivery Method Room Air [facility] <VALE Hickman - Last Filed: 04/01/23 15:15> [facility] Narrative Medical decision making narrative: Patient felt lightheaded and presyncopal. Also noted a headache with squiggly lines in his vision which she states he gets about once a month. He now feels well. Vital signs stable. Exam is unremarkable. PERRL, EOMI, no visual deficits. Neurologically intact. No meningismus. Since his headaches have never been evaluated a CT brain was obtained and is unremarkable. CBC and BMP unremarkable. EKG is sinus rhythm and nonischemic and troponin is 5. After IV fluids and eating and drinking something here is feeling improved. He was able to ambulate and states he feels comfortable going home. I recommended follow-up with his PCP for both lightheadedness and chronic headaches. He was discharged in stable condition. I have personally performed a face to face assessment of the patient and have reviewed the ROLANDA Note. I performed a substantive portion of the visit including all aspects of the following. My ag findings include: History is 68-year-old male had a near syncopal event today while using a drill working on his car. No LOC. History of prior similar events. He gets headaches associated with them. No chest pain. No shortness of breath. No abdominal pain. No recent illness. Exam is [well-appearing 68-year-old. Vital signs stable afebrile. HEENT exam unremarkable. Normal speech. No droop. Neck nontender. Lungs clear to auscultation. Heart regular rhythm no murmur. Abdomen is soft and nontender. Moving all 4 extremities. Nontender no edema. Neurologically is awake and alert. Answer questions following commands. No focal motor deficits. NIH 0.] Medical Decision Making [68-year-old male with a near syncopal event. CBC is unremarkable. Chemistries unremarkable. Normal gap. Normal BUN and creatinine. Normal glucose. Troponin normal at 5.] Other additions or changes: [None] Lab Data Labs: Laboratory Results - last 24 hr 04/01/23 13:34 WBC 9.9 RBC 5.26 Hgb 15.7 Hct 48.1 MCV 91.4 MCH 29.8 MCHC 32.6 RDW Std Deviation 45.4 H RDW Coeff of Mary 13.4 Plt Count 322 MPV 10.0 Immature Gran % (Auto) 0.400 Neut % (Auto) 73.9 H Lymph % (Auto) 16.6 L Mayes % (Auto) 7.8 Eos % (Auto) 0.8 Baso % (Auto) 0.5 Absolute Neuts (auto) 7.3 Absolute Lymphs (auto) 1.64 Nucleated RBC % 0 Sodium 135 L Potassium 4.4 Chloride 106 Carbon Dioxide 25.0 Anion Gap 4 L BUN 20 H Creatinine 0.96 Est GFR (MDRD) Af Amer 100 Est GFR (MDRD) Non-Af 82 BUN/Creatinine Ratio 20.8 H Glucose 108 H Calcium 9.0 Troponin I High Sens 5 Radiography Diagnostic Testing: Clinical Impression(s) from Imaging Studies Brain CT 04/01/23 12:52 IMPRESSION: Normal unenhanced CT scan of the brain. Electronically Signed: Washington Vidales MD at 14:24 EST , EKG Initial EKG: Attestation: I personally reviewed and interpreted this EKG as follows: Interpretation: Sinus Rhythm and No Acute Injury Pattern Comments: Normal sinus rhythm 85 bpm Normal intervals, no STEMI criteria <Dr. Migel Clifford MD - Last Filed: 04/01/23 14:31> [facility] MDM Narrative Medical decision making narrative: I have personally performed a face to face assessment of the patient and have reviewed the ROLANDA Note. I performed a substantive portion of the visit including all aspects of the following. My ag findings include: History is 68-year-old male had a near syncopal event today while using a drill working on his car. No LOC. History of prior similar events. He gets headaches associated with them. No chest pain. No shortness of breath. No abdominal pain. No recent illness. Exam is [well-appearing 68-year-old. Vital signs stable afebrile. HEENT exam unremarkable. Normal speech. No droop. Neck nontender. Lungs clear to auscultation. Heart regular rhythm no murmur. Abdomen is soft and nontender. Moving all 4 extremities. Nontender no edema. Neurologically is awake and alert. Answer questions following commands. No focal motor deficits. NIH 0.] Medical Decision Making [68-year-old male with a near syncopal event. CBC is unremarkable. Chemistries unremarkable. Normal gap. Normal BUN and creatinine. Normal glucose. Troponin normal at 5.] Other additions or changes: [None] History & Record Review Discussion w/independent historian: Patient Additional record(s) reviewed:: Prior inpatient record, Prior outpatient record, Prior ED visit and Prior labs Lab Data Attestation: I reviewed the patient's lab results. Lab results narrative: CBC normal. White count of 9. H&H 15 and 48. Platelets 322. Electrolytes sodium 135. Gap 4. BUN and creatinine 20 and 0.9. Glucose 108. Troponin 5. Normal CAT scan of the brain. Labs: Laboratory Results - last 24 hr 04/01/23 13:34 WBC 9.9 RBC 5.26 Hgb 15.7 Hct 48.1 MCV 91.4 MCH 29.8 MCHC 32.6 RDW Std Deviation 45.4 H RDW Coeff of Mary 13.4 Plt Count 322 MPV 10.0 Immature Gran % (Auto) 0.400 Neut % (Auto) 73.9 H Lymph % (Auto) 16.6 L Mayes % (Auto) 7.8 Eos % (Auto) 0.8 Baso % (Auto) 0.5 Absolute Neuts (auto) 7.3 Absolute Lymphs (auto) 1.64 Nucleated RBC % 0 Sodium 135 L Potassium 4.4 Chloride 106 Carbon Dioxide 25.0 Anion Gap 4 L BUN 20 H Creatinine 0.96 Est GFR (MDRD) Af Amer 100 Est GFR (MDRD) Non-Af 82 BUN/Creatinine Ratio 20.8 H Glucose 108 H Calcium 9.0 Troponin I High Sens 5 Radiography Diagnostic Testing: Clinical Impression(s) from Imaging Studies Brain CT 04/01/23 12:52 IMPRESSION: Normal unenhanced CT scan of the brain. Electronically Signed: Washington Vidales MD at 14:24 EST , Discharge Plan Triage Chief Complaint: Dizziness ED Midlevel Provider: Charlene Howard ED Provider: Migel Clifford Dx/Rx/DC Orders Clinical Impression: Lightheadedness, Headache Instructions: ED Dizziness, Uncertain Cause Prescriptions: No Action irbesartan 300 mg tablet 300 mg PO DAILY ibuprofen [Advil] 200 mg tablet 600 mg PO TID PRN (Reason: GENERAL PAIN) famotidine [Acid Controller] 20 mg tablet 20 mg PO DAILY Qty: 5 0RF Rx Instructions: daily for 5 days Primary Care Provider: Dwaine Kelsey Referrals: Dwaine Kelsey, [Primary Care Provider] - Activity Restrictions/Additional Instructions: I am not sure what caused your episode of lightheadedness today. Your blood work and CT scan of your brain are within normal limits. Please follow-up with your doctor for both the lightheadedness and ongoing headaches. Return to ER if symptoms worsen. Disposition Disposition: Home, Self Care
[2023-04-01 13:47] LABS: Absolute Lymphocyte Count 1.64 X10^3/uL (0.83-4.51); Absolute Neutrophil Count 7.3 X10^3/uL (2.0-7.7); Basophil# 0.05 X10^3/uL; Basophil% 0.5 % (0-1); Eosinophil# 0.08 X10^3/uL; Eosinophils% 0.8 % (0-5); Hematocrit 48.1 % (40-54); Hemoglobin 15.7 g/dL (13.0-16.5); Lymphocyte # 1.64 X10^3/ul (0.83-4.51); Lymphocyte % 16.6 % (19-41); Mean Corp Hgb Conc 32.6 g/dL (32-36); Mean Corpuscular Hgb 29.8 pg (27.0-32.0); Mean Corpuscular Volume 91.4 fL (80-94); Monocyte# 0.77 X10^3/uL; Monocyte% 7.8 % (0-10); NRBC Flagged by Analyzer 0 % (0-5); Neutrophil # 7.31 X10^3/uL (2.7-7.7); Neutrophil % 73.9 % (47-70); Platelet Count 322 K/mm3 (150-450); RBC Distribution Width CV 13.4 % (11.6-14.6); RBC Distribution Width SD 45.4 fl (35.1-43.9); Red Blood Count 5.26 M/mm3 (4.6-6.2); White Blood Count 9.9 K/mm3 (4.4-11.0)
[2023-04-01 14:02] LABS: Anion Gap 4 (5-15); BUN 20 mg/dL (7-18); BUN/Creat Ratio 20.8 RATIO (10-20); Chloride 106 mmol/L (98-107); Creatinine, Serum 0.96 mg/dL (0.70-1.30); EST Glomerular Filtration Rate 82 mL/min (>60); Est Glom Filt Rate - Afr Amer 100 mL/min (>60); Glucose 108 mg/dL (74-106); Potassium 4.4 mmol/L (3.5-5.1); Sodium Level 135 mmol/L (136-145); Troponin-I HS 5 pg/mL (3.0-78.0)
[2023-04-01 14:31] VITALS: BP 121/81; PULSE 88; RESP 16; TEMP 36.1; O2SAT 94
[2023-04-01] MEDS: 0.9% Normal Saline (500mL Bag) 500 ML 999 ML IV (14:49)
[2023-04-01 16:04] VITALS: BP 109/79
== END 2023-04-01 16:04 | disposition home or self-care (01) ==
PROVIDERS: Physician Assistant; Emergency Provider Emergency Medicine; Visit Provider Emergency Medicine
DX: R42 Dizziness and giddiness (principal); R51.9 Headache, unspecified; I10 Essential (primary) hypertension; I25.10 Atherosclerotic heart disease of native coronary artery without angina pectoris; I25.2 Old myocardial infarction; Z79.899 Other long term (current) drug therapy; Z95.5 Presence of coronary angioplasty implant and graft; Z87.891 Personal history of nicotine dependence
CPT/HCPCS: 70450; 80048; 84484; 85025; 93005; 99284; J7040; A4216

== ENCOUNTER 2023-06-26 07:02 | Day surgery (SDC) | payer MEDICARE, SELFPAY ==
[2023-06-23 10:11] VITALS: BMI 36.6
--- NOTE | 2023-06-27 14:26 | CL.IE_ITS ---
Patient: HAKEEM FREIRE Study Date: 06/26/2023 Performing: Maximo Mae MD : 1955 Age: 68 Gender: male PROCEDURES PERFORMED LP01-([id number])INSERTION OF LOOP RECORDER INDICATIONS Syncope PROCEDURE DETAILS The patient was brought to the Catheterization Lab in the postabsorptive nonsedated state. Informed consent was obtained prior to the procedure. Local anesthetic was given subcutaneously to the left upper chest area with Lidocaine 2%. Incision was made to the left upper chest. ICM Loop Recorder was inserted. Steri-strips applied to Lt chest area. The patient tolerated the procedure well. Estimated Blood Loss: < 10 mls IMPLANTED / EX-PLANTED DEVICES IMPLANTED DEVICE(S): ICM Loop Recorder - Linux Administrator: [employer], Model # [id number] , Serial # [id number] DEVICE PARAMETERS CONCLUSIONS / RECOMMENDATIONS Device Conclusions: Successful implantation of a patient activated loop recorder. Device Recommendations: Follow up with Primary Care Physician PROCEDURE MEDICATIONS Versed 1 mg IV Oxygen: 2 L/min via nasal cannula Ancef 2 Gm IV @ 06/26/2023 08:24:52 Signed By Maximo Mae MD On 06/26/2023 08:41:59 Maximo Mae MD
== END 2023-06-26 10:10 | disposition home or self-care (01) ==
PROVIDERS: Referring Provider Internal Medicine Cardiovascular Disease; Visit Provider Internal Medicine Cardiovascular Disease
DX: R55 Syncope and collapse (principal); I49.5 Sick sinus syndrome; I25.2 Old myocardial infarction; I10 Essential (primary) hypertension; I25.10 Atherosclerotic heart disease of native coronary artery without angina pectoris; Z79.899 Other long term (current) drug therapy; Z95.5 Presence of coronary angioplasty implant and graft; Z87.891 Personal history of nicotine dependence
CPT/HCPCS: 33285; 99152; J7040

== ENCOUNTER 2023-07-03 11:42 | Observation (INO) | payer MEDICARE, SELFPAY ==
[2023-06-29 13:51] LABS: Bacteria 0 SEEN /hpf (None Seen); Mucous, Urine 0 SEEN /hpf (<or=2+); Red Blood Cells-Urine 0 SEEN /hpf (0-5); Squamous Epithelial Cells - UA 0 SEEN /hpf (0-5); White Blood Cells 0 SEEN /hpf (0-5)
--- NOTE | 2023-06-29 14:10 | RAD_ITS ---
INDICATION: For PPM implant on 07/03/23 EXAMINATION/TECHNIQUE: X-RAY - XR Chest 2 Views COMPARISON: No relevant prior comparison study available FINDINGS: LINES/DEVICES: None. LUNGS: Elevation of the left hemidiaphragm. Linear stranding/scarring in left lung base. No evidence of pleural effusions.. MEDIASTINUM AND CARDIOVASCULAR STRUCTURES: The cardiac silhouette is within normal limits. No precordial device overlying the left lower chest. BONES AND SOFT TISSUES: Degenerative changes of both shoulders. RAD/Chest PA and Lateral IMPRESSION: 1. Elevation of the left hemidiaphragm. 2. Atelectasis or scarring in the left lower lung. Electronically Signed: Arnulfo Shell MD at 14:32 EDT ,
[2023-06-29 14:34] LABS: Color, Urine Yellow (Yellow); Glucose, Dipstick Normal (Normal); Ketone-Dipstick 5 mg/dl (Negative); Leukocyte Esterase-Dipstick Negative /ul (Negative); Nitrite-Dipstick Negative (Negative); Occult Blood-Urine 10 /ul (Negative); Protein-Dipstick Negative (Negative); Specific Gravity, Urine 1.025 (1.002-1.030); Urine Bilirubin Dipstick Negative (Negative); Urine Clarity Clear (Clear); Urine Urobilinogen Normal (Normal)
[2023-06-29 14:36] LABS: Hematocrit 48.7 % (40-54); Mean Corp Hgb Conc 32.9 g/dL (32-36); Mean Corpuscular Hgb 29.9 pg (27.0-32.0); Mean Corpuscular Volume 90.9 fL (80-94); Mean Platelet Vol. 10.6 fl (6.2-12.0); Platelet Count 290 K/mm3 (150-450); RBC Distribution Width SD 46.3 fl (35.1-43.9); Red Blood Count 5.36 M/mm3 (4.6-6.2); White Blood Count 8.8 K/mm3 (4.4-11.0)
[2023-06-29 14:46] LABS: Prothrombin Time (Protime)PT. 12.8 SECONDS (11.7-14.9)
[2023-06-29 14:49] LABS: Anion Gap 6 (5-15); BUN 20 mg/dL (7-18); BUN/Creat Ratio 22.2 RATIO (10-20); Calcium,Total 8.7 mg/dL (8.5-10.1); Chloride 107 mmol/L (98-107); EST Glomerular Filtration Rate 89 mL/min (>60); Est Glom Filt Rate - Afr Amer 107 mL/min (>60); Glucose 140 mg/dL (74-106); Potassium 4.1 mmol/L (3.5-5.1); Sodium Level 137 mmol/L (136-145)
--- NOTE | 2023-06-30 12:08 | PCM.HP.BLA ---
History and Physical Date of Admission: 07/03/23 Adama Millan is a 68 year old gentleman that presents here for a pacemaker placement. He had establish care with us after transferring from [place]. As you know he did have a history of non-ST elevation myocardial infarction underwent a cardiac catheterization in December 2021 demonstrating nonobstructive coronary arteries. His ejection fraction was noted to be normal. He had complained of having concerns over palpitations. He has a sensation that his heart is fluttering, it is difficult to breath. he notes that there was a period of approx 2 weeks where he needed to sleep in his truck. He does admit to issues with is lungs. 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 He did have a 14-day event monitor placed on beta-mike and it did demonstrate some episodes of sinus pauses of up to 4 seconds. The dose was reduced from 50 mg to 25 mg with improvement in the dysrhythmias but still present. Since the metoprolol was completely discontinued he does not appear to have had any more dysrhythmias. Part of his visit here to discuss whether he needs a pacemaker or not. It was decided to repeat his HM, this did not demonstrated any arrhythmias or pauses while he was off the BB. In March he had a near syncopal event was was sent to the ER. Cardiac work up was negative. He had a loop recorder placed last week. His device demonstrated high grade AV block and he is scheduled to have a PPM today. Medical History Atherosclerotic heart disease of [place] coronary artery without angina pectoris Bilateral carotid artery disease Elevated hemidiaphragm Essential hypertension History of left heart catheterization (LHC) (~07/2010) History of non-ST elevation myocardial infarction (NSTEMI) (~08/02/10) Mixed hyperlipidemia Presence of stent in coronary artery (~07/23/15) Sick sinus syndrome Surgical History History of back surgery History of lung surgery Presence of coronary angioplasty implant and graft (~07/23/15) Family History Father CVA (cerebral vascular accident) Sister Heart failure Other Atherosclerotic heart disease of [place] coronary artery without angina pectoris Social History Smoking Status: Former smoker alcohol intake: current details: occasional substance use type: does not use caffeine: Yes (5 servings per day) ROS Const Const: Negative for fatigue, weakness, fever(s) or headache(s) Eyes Eyes: Negative for blind spots, loss of peripheral vision or transient loss of vision ENT ENT: Negative for headache(s), dizziness, tinnitus, Nosebleed/epistaxis or balance problems Cardio Chest Pain: No Palpitations: No Edema: None Muscle aches with walking: None Resp Respiratory: Negative for SOB with activity, SOB at rest, SOB orthopnea\SOB lying down or Cough GI GI: Negative nausea, vomiting, heartburn or vomiting blood/hematemesis : Negative for hematuria Musc Musc: Negative for muscle aches/ myalgia, muscle weakness, joint pain or balance problems Neuro Neuro: Positive for near syncope; Negative for dizziness, lightheadedness, syncope, orthostatic symptoms, headache(s) or weakness Darryn Hematologic/Lymphatic: Negative for easy bleeding Endo Endo: Negative for fatigue Cardiology Exam Const Appearance: cooperative, healthy appearing, comfortable, no acute distress and well developed Orientation: alert, awake and oriented x3 Head Head: normal to inspection Ears: hearing grossly normal bilaterally Nose: external nose normal Face and Sinus: face symmetric Mouth: oral mucosae normal, lip normal and moist mucous membranes Eyes General: appearance normal, both eyes and all related structures Eyelids: eyelids normal Conjunctivae: conjunctivae normal Pupils: PERRL EOM: EOM intact bilaterally Neck Neck: normal visual inspection and trachea midline; Negative no JVD Carotids: Negative bruit Chest Chest inspection: normal inspection of the chest Auscultation: Bilateral: Clear to Auscultation Cardio Palpation: normal PMI Rate: regular rate Rhythm: regular rhythm Heart sounds: S1 normal and S2 normal; Negative rub, gallop or murmur GI GI: soft, no hepatosplenomegaly and bowel sounds present Neuro General: patient alert, patient awake, patient oriented x3 and CN's II-XI intact bilaterally Extremities Pulses: Normal: Right Posterior Tibial Pulse, Left Posterior Tibial Pulse, Right Radial Pulse and Left Radial Pulse Lower Extremity Edema: None: Bilateral Psych Psychological: normal affect Assessment & Plan Assessment/Plan (1) High-grade atrioventricular block: (2) Sick sinus syndrome: (3) Presence of stent in coronary artery: PLAN: Plan Pt will undergo a PPM placement today and will f/u accordingly.
[2023-06-30 13:44] VITALS: BMI 36.6
--- NOTE | 2023-07-03 11:50 | CL.IE_ITS ---
Patient: HAKEEM FREIRE Study Date: 07/03/2023 Performing: Maximo Mae MD : 1955 Age: 68 Gender: male PROCEDURES PERFORMED LP04-([id number])INITIAL PACER INSERT+DUAL LEADS INDICATIONS Sinoatrial node dysfunction/Sick sinus syndrome PROCEDURE DETAILS The patient was brought to the Catheterization Lab in the postabsorptive nonsedated state. Informed consent was obtained prior to the procedure. Local anesthetic was given subcutaneously to the left subclavian region with Lidocaine 2%. Access was achieved and a guidewire was advanced into the left subclavian vein. Incision was made to the left subclavicular area. PPM ventricular lead was inserted / positioned to right ventricular apex. PPM atrial lead was inserted / positioned to the right atrial appendage. PPM atrial lead testing performed. The Atrial lead sutured in place with 2-0 Silk. The Ventricular PM lead sutured in place with 2-0 Silk. Device pocket was irrigated with antibiotic. PPM generator was attached to the lead(s) and inserted into the pocket. PPM generator was then interrogated by the computer programmer analyst. Subcutaneous closure was completed with 3-0 Vicryl. Skin closure was completed with 4-0 Vicryl. Steri-strips applied to left subclavicular incision. The patient tolerated the procedure well. Estimated Blood Loss: 15 ml's IMPLANTED / EX-PLANTED DEVICES IMPLANTED DEVICE(S): PPM Ventricular lead - Grease Maker Head: [employer], Model # Tendril STS 58cm Ref 2088TC , Serial # [id number] PPM Atrial lead - Grease Maker Head: [employer], Model # Tendril STS 52cm Ref 8TC , Serial # [id number] PPM Generator - Grease Maker Head: [employer], Model # Assurity MRI pulse generator Ref [id number] , Serial # [id number] DEVICE PARAMETERS ATRIAL LEAD PARAMETERS: threshold- 0.75 (V) P wave- 4.7 (mV) impedence- 510 (OHMS) VENTRICULAR LEAD PARAMETERS: R wave- 13.8 (mV) threshold- 0.75 (V) impedence- 740 (OHMS) DEVICE PARAMETERS: Mode- DDD Lower rate- 60 Upper rate- 120 CONCLUSIONS / RECOMMENDATIONS Device Conclusions: Successful implantation of a dual chamber pacemaker Device Recommendations: Follow up with Primary Care Physician PROCEDURE MEDICATIONS Versed 1 mg IV Fentanyl 50 mcg IV Versed 1 mg IV Oxygen: 2 L/min via nasal cannula Antibiotic given in appropriate timeframe. Ancef 2 Gm IV @ 07/03/2023 10:21:30 Signed By Maximo Mae MD On 07/03/2023 11:50:14 Maximo Mae MD
[2023-07-03 14:25] VITALS: BMI 36.6
[2023-07-03 14:28] VITALS: BP 102/62; PULSE 80; RESP 16; TEMP 36.9; O2SAT 98
[2023-07-03] MEDS: Famotidine 20 MG Tablet PO (16:17)
[2023-07-03] MEDS: Acetaminophen 325 MG Tablet 650 MG PO (16:17)
[2023-07-03 21:50] VITALS: BP 99/60; PULSE 85; RESP 18; TEMP 36.4; O2SAT 96
[2023-07-04] MEDS: Acetaminophen 325 MG Tablet 650 MG PO (02:52)
[2023-07-04 03:58] VITALS: RESP 18; O2SAT 87
[2023-07-04 04:00] VITALS: BP 141/74; PULSE 85; RESP 18; TEMP 36.6; O2SAT 93
--- NOTE | 2023-07-04 05:55 | RAD_ITS ---
INDICATION: Post permanant ICD/Pacemaker -- inspiration/expiration. Arms Down. Wet read to MD EXAMINATION/TECHNIQUE: X-RAY - AP and lateral views of chest with inspiration and expiration COMPARISON: Two-view chest x-ray from 06/29/2023 FINDINGS: LINES/DEVICES: Left AICD in place. Left chest wall cardiac loop recorder device also noted. LUNGS: Stable moderately elevated left hemidiaphragm. Mild bibasilar atelectatic changes. No sizable pleural effusion. No detectable pneumothorax. MEDIASTINUM AND CARDIOVASCULAR STRUCTURES: Heart size within normal limits for imaging technique. Atherosclerotic calcifications along aorta. BONES AND SOFT TISSUES: Skeletal degenerative changes. RAD/Chest 3 View IMPRESSION: Bibasilar atelectatic changes with chronically elevated left hemidiaphragm Electronically Signed: Dipak Marrufo MD at 5:30 EDT ,
[2023-07-04] MEDS: Ibuprofen 600 MG Tablet PO (06:37)
--- NOTE | 2023-07-04 07:31 | PCM.PN.CARD ---
Subjective Subjective Patient seen and evaluated. Appears to be doing well. Objective Data Vital Signs: Vital Signs Temp Pulse Resp BP Pulse Ox O2 Del Method O2 Flow Rate 97.9 F 85 18 141/74 H 93 Nasal Cannula 2 07/04/23 04:00 07/04/23 04:00 07/04/23 04:00 07/04/23 04:00 07/04/23 04:00 07/04/23 04:00 07/04/23 04:00 Oxygen Flow Rate (L/min) 2 Oxygen Delivery Method Nasal Cannula Weight: 248 lb 0.003 oz Body Mass Index (BMI) 36.6 Intake & Output: Intake and Output for Last 24 Hours 07/02/23 07/03/23 07/04/23 23:59 23:59 23:59 Intake Total 400 / 400 Output Total 650 / 650 600 / 600 Balance -650 / -650 -200 / -200 Lab / Micro Data 06/29/23 13:50 06/29/23 13:50 Cardiology Labs/Tests Rhythm: EKG: ECHO: Stress Test: Cardiac Cath: PCI: CT Surgery: Holter monitor: EPS: PPM: CXR: Chest CT Scan: Radiography Diagnostic Testing: Radiology Impression Chest X-Ray 07/04/23 05:55 IMPRESSION: Bibasilar atelectatic changes with chronically elevated left hemidiaphragm Electronically Signed: Dipak Marrufo MD at 5:30 EDT , Physical Exam Const alert, oriented x3 and no apparent distress General Appearance: cooperative HEENT hearing grossly normal bilaterally Head and Scalp: atraumatic Eyes EOMs intact bilaterally Neck General: normal visual inspection Chest inspection of chest normal and palpation of chest normal Resp normal respiratory effort Auscultation: clear to auscultation bilaterally Cardio regular rate, regular rhythm, S1 normal heart sound and S2 normal heart sound Jugular Venous Distention: JVD GI normal to inspection, nondistended, normoactive bowel sounds Extremity normal capillary refill and no pedal edema Peripheral Pulses: Yes pulses 2+ throughout and femoral pulses present Skin no rashes or lesions noted Neuro oriented x3 and CN's II-XII intact bilaterally Psych Appearance: grossly normal and appropriate Assessment & Plan Assessment/Plan (1) High-grade atrioventricular block: PLAN: Patient is status post permanent pacemaker implantation for high-grade AV block. Pacemaker interrogation demonstrated normal functioning. Chest x-ray no evidence of pneumothorax. Patient will be discharged for outpatient follow-up.
--- NOTE | 2023-07-04 07:33 | DCINST_ITS ---
Discharge Instructions Diet Discharge Diet: No restrictions (as you feel able. No excessive stretching. No lifting your arm over your head (keep elbow below shoulder level) until seen for your pacemaker check. Do not lift your elbow away from your side until you are seen for your first visit. Keep the arm sling on if it helps remind you not to lift your arm.) Activity Discharge Activity: May Not Drive May shower in (days): 2 Additional Activity Instructions:: May shower or bathe on [day 3]. Do not scrub the incision or soak in the tub. Just wash with soap and let the water run over the incision. Gently pat dry with towel. Medications: Take your pain medication as directed. Refer to your discharge instruction sheet for a list of medications you are to take. Dressing / Incision Call your doctor if your incision/area has: Continuous Slow Oozing, Sudden Increased Bleeding, Increased Pain/ Swelling, Increased Redness, Foul Smelling Discharge and Swelling at the incision site Call your doctor if you observe: Fever of 101 or Higher, Shortness of breath, Dizziness, Fainting spells, Swelling in the ankles, Chest pain, Prolonged hiccupping and Increased palpitations (irregular heartbeat) Suture Line Care: Avoid Pulling/Pushing and Avoid Pinching/Bending Cleanse incision/area with: Keep Dressing Clean & Dry Additional Dressing/Incision Instructions:: When dressing is removed, wash and dry incision. Keep covered with a light bandage if it is rubbing against your clothing. Do not cover the incision with an airtight bandage. Change the bandage daily. Do not remove steri strips. The strips will fall off on their own. Follow Up Care Please Follow Up With: Maximo Mae MD When: Pacer follow-up on July 09 at 1 PM Test Results: Test results from this visit will be discussed in further detail at your follow- up appointment, if applicable. Discharge Plan Admission Admit Date/Time: 07/03/23 11:42 Attending Provider: Maximo Mae Primary Care Provider: Dwaine Klesey Discharge Orders/Prescriptions Prescriptions: No Action irbesartan 300 mg tablet 300 mg PO DAILY ibuprofen [Advil] 200 mg tablet 600 mg PO TID PRN (Reason: GENERAL PAIN) famotidine [Acid Controller] 20 mg tablet 20 mg PO DAILY Qty: 5 0RF Rx Instructions: daily for 5 days Referrals / Follow Up: Dwaine Kelsey DO [Primary Care Provider] - Disposition Disposition (needs filled in before D/C Order can be placed): Home, Self Care
--- NOTE | 2023-07-04 09:06 | CASEMGMT ---
Patient has order for discharge. RN CM in to discuss needs at discharge. Patient denies needs or help at discharge. Patient had no further questions or concerns.
[2023-07-04 09:31] VITALS: BP 134/85; PULSE 86; RESP 16; TEMP 36.6; O2SAT 92
== END 2023-07-04 07:33 | disposition home or self-care (01) ==
LOC: PCU 13:45
PROVIDERS: Admitting Provider Internal Medicine Cardiovascular Disease; Referring Provider Internal Medicine Cardiovascular Disease; Visit Provider Internal Medicine Cardiovascular Disease
DX: Z45.018 Encounter for adjustment and management of other part of cardiac pacemaker (principal); I49.5 Sick sinus syndrome; I25.10 Atherosclerotic heart disease of native coronary artery without angina pectoris; E78.2 Mixed hyperlipidemia; I10 Essential (primary) hypertension; Z87.891 Personal history of nicotine dependence; Z95.5 Presence of coronary angioplasty implant and graft; I25.2 Old myocardial infarction; I44.39 Other atrioventricular block
CPT/HCPCS: 33208; 36415; 71046; 71047; 80048; 81001; 85027; 85610; 99152; 99221; J7040; J7050; C1894; G0378

== ENCOUNTER → 2023-07-18 | Outpatient (CLI) | payer MEDICARE, SELFPAY ==
[2023-07-18 14:11] LABS: Hematocrit 46.7 % (40-54); Hemoglobin 15.7 g/dL (13.0-16.5); Mean Corp Hgb Conc 33.6 g/dL (32-36); Mean Corpuscular Hgb 30.3 pg (27.0-32.0); Mean Corpuscular Volume 90.2 fL (80-94); Mean Platelet Vol. 9.4 fl (6.2-12.0); Platelet Count 303 K/mm3 (150-450); RBC Distribution Width CV 13.8 % (11.6-14.6); RBC Distribution Width SD 45.4 fl (35.1-43.9); Red Blood Count 5.18 M/mm3 (4.6-6.2); White Blood Count 7.5 K/mm3 (4.4-11.0)
[2023-07-18 14:35] LABS: BNP,B-Type NATRIURETIC PEPTIDE 11.3 pg/mL (0-100)
[2023-07-18 15:09] LABS: Anion Gap 5 (5-15); BUN 27 mg/dL (7-18); BUN/Creat Ratio 21.4 RATIO (10-20); Calcium,Total 8.9 mg/dL (8.5-10.1); Chloride 109 mmol/L (98-107); Creatinine, Serum 1.26 mg/dL (0.70-1.30); EST Glomerular Filtration Rate 60 mL/min (>60); Est Glom Filt Rate - Afr Amer 73 mL/min (>60); Glucose 133 mg/dL (74-106); Potassium 4.2 mmol/L (3.5-5.1); Sodium Level 138 mmol/L (136-145)
== END | disposition home or self-care (01) ==
LOC: LAB 13:48
PROVIDERS: Referring Provider Physician Assistant Medical; Visit Provider Physician Assistant Medical
DX: I25.10 Atherosclerotic heart disease of native coronary artery without angina pectoris (principal); I49.5 Sick sinus syndrome; I45.5 Other specified heart block; R06.09 Other forms of dyspnea
CPT/HCPCS: 36415; 80048; 83880; 85027

== ENCOUNTER → 2023-11-27 | Outpatient (CLI) | payer MEDICARE, SELFPAY ==
[2023-11-27 13:47] LABS: AST(SGOT) 25 U/L (15-37); Alanine Aminotransfer ALT/SGPT 39 U/L (16-61); Albumin, Serum 3.6 g/dL (3.2-5.0); Alkaline Phosphatase 99 U/L (45-117); Anion Gap 8 (5-15); BUN 15 mg/dL (7-18); BUN/Creat Ratio 16.6 RATIO (10-20); Bilirubin, Direct 0.09 mg/dL (0.00-0.30); Calcium,Total 8.7 mg/dL (8.5-10.1); Chloride 105 mmol/L (98-107); Cholesterol 208 mg/dL (200); EST Glomerular Filtration Rate 88 mL/min (>60); Est Glom Filt Rate - Afr Amer 107 mL/min (>60); Globulin 3.7 g/dL (2.2-4.2); Glucose 111 mg/dL (74-106); High Density Lipoprotein 45 mg/dL; Potassium 3.8 mmol/L (3.5-5.1); Protein, Total 7.3 g/dL (6.4-8.2); Sodium Level 137 mmol/L (136-145); Triglycerides 139 mg/dL; Very Low Density Lipoprotein 28 mg/dL (5-40)
== END | disposition home or self-care (01) ==
LOC: LAB 11:57
PROVIDERS: Referring Provider Physician Assistant Medical; Visit Provider Physician Assistant Medical
DX: E78.2 Mixed hyperlipidemia (principal); I25.10 Atherosclerotic heart disease of native coronary artery without angina pectoris; I10 Essential (primary) hypertension; R00.2 Palpitations; Z95.5 Presence of coronary angioplasty implant and graft; Z98.890 Other specified postprocedural states
CPT/HCPCS: 36415; 80048; 80061; 80076

== ENCOUNTER → 2024-02-07 | Outpatient (CLI) | payer MEDICARE, SELFPAY ==
--- NOTE | 2024-02-07 09:54 | RAD_ITS ---
INDICATION: RIGHT FOOT PAIN, MID TO PROXIMAL FOOT, 5TH METATARSAL R/O FX EXAMINATION/TECHNIQUE: X-RAY - RIGHT XR Foot Min 3 Views 3 VIEWS COMPARISON: No relevant prior comparison study available FINDINGS: SOFT TISSUES: No soft tissue swelling or gas. No radiopaque foreign body. BONES/JOINTS: No acute fracture or subluxation.. Plantar calcaneal spur. Preservation of the joint space.. No sclerotic or destructive changes observed. RAD/Foot min 3 Views IMPRESSION: No evidence of acute fracture. Electronically Signed: Arnulfo Shell MD at 10:47 EDT ,
--- NOTE | 2024-02-07 09:54 | RAD_ITS ---
INDICATION: RIGHT FOOT PAIN, MID TO PROXIMAL FOOT, 5TH METATARSAL R/O FX EXAMINATION/TECHNIQUE: X-RAY - RIGHT XR Ankle Min 3 Views 3 VIEWS COMPARISON: No relevant prior comparison study available FINDINGS: SOFT TISSUES: Subcutaneous soft tissue swelling. No radiopaque foreign body. BONES/JOINTS: No acute fracture or subluxation.. Normal alignment. Preservation of the joint space.. No sclerotic or destructive changes observed. RAD/Ankle min 3 Views IMPRESSION: Soft tissues swelling without evidence of acute fracture. Electronically Signed: Arnulfo Shell MD at 10:49 EDT ,
== END | disposition home or self-care (01) ==
DX: M79.671 Pain in right foot (principal)
CPT/HCPCS: 73610; 73630

== ENCOUNTER → 2024-12-04 | Outpatient (CLI) | payer MEDICARE, SELFPAY ==
[2024-12-04 12:27] LABS: AST(SGOT) 26 U/L (<=37); Alanine Aminotransfer ALT/SGPT 29 U/L (<=46); Albumin, Serum 4.1 g/dL (3.4-4.8); Alkaline Phosphatase 102 U/L (40-129); Anion Gap 12 (5-15); BUN 20 mg/dL (4-19); BUN/Creat Ratio 22.4 RATIO (10-20); Calcium,Total 9.3 mg/dL (7.6-11.0); Carbon Dioxide 22.6 mmol/L (21.0-32.0); Chloride 104 mmol/L (98-108); Cholesterol 210 mg/dL (<=200); Globulin 2.8 g/dL (2.2-4.2); Glucose 166 mg/dL (70-99); Low Density Lipoprotein Calc. 119 mg/dL; Potassium 4.0 mmol/L (3.3-5.1); Triglycerides 256 mg/dL; Very Low Density Lipoprotein 51 mg/dL (5-40); cholesterol:hdl ratio screen 5.21
== END | disposition home or self-care (01) ==
LOC: LAB 11:35
PROVIDERS: Referring Provider Physician Assistant Medical; Visit Provider Physician Assistant Medical
DX: E78.2 Mixed hyperlipidemia (principal)
CPT/HCPCS: 36415; 80053; 80061